=== PATIENT | female | born 1995 | race Caucasian/White ===

== ENCOUNTER 2017-11-14 04:55 | Emergency (ER) | payer MEDICAID ==
[~2017-11-14] VITALS: Ht 154.9 cm; Wt 56.7 kg
[~2017-11-14 04:55] MED LIST: MORPHINE 4 MG/ML INJ. SYRINGE IVP ONE
[2017-11-14 04:58] VITALS: BP_SYST 88
[2017-11-14] MEDS ORDERED: NACL 0.9% 1,000 ML IV ONE (05:23)
[2017-11-14] MEDS ORDERED: PANTOPRAZOLE SODIUM 40 MG/VIAL (PROTONIX) IVP ONE (05:30)
[2017-11-14 06:11] LABS: BASOPHILS # (AUTO) 0.4 K/uL (0.0-0.2); BASOPHILS % (AUTO) 2.8 % (0.0-2.0); EOSINOPHILS # (AUTO) 0.2 K/uL (0.0-0.4); EOSINOPHILS % (AUTO) 1.1 % (0.0-4.0); HEMATOCRIT 37.3 % (36-48); LYMPHOCYTES % (AUTO) 6.5 % (20.5-51.5); MEAN CORPUSCULAR HEMOGLOBIN 28 pg (27-31); MEAN CORPUSCULAR HGB CONC 32 % (32-36); MEAN CORPUSCULAR VOLUME 86 fL (79.0-98.0); MONOCYTES # (AUTO) 0.3 K/uL (0.0-1.0); MONOCYTES % (AUTO) 1.9 % (1.7-9.3); NEUTROPHILS % (AUTO) 87.7 % (40.0-70.0); RED BLOOD CELL COUNT(AUTO) 4.34 MIL/uL (4.2-6.2); RED CELL DISTRIBUTION WIDTH 15.1 % (9.0-15.0); WHITE BLOOD COUNT (AUTO) 15.9 K/uL (4.8-10.8)
[2017-11-14] MEDS ORDERED: MORPHINE 4 MG/ML INJ. SYRINGE ONE (06:21)
[2017-11-14 06:36] LABS: CALCIUM 9.4 mg/dL (8.4-11.0); CREATININE 0.58 mg/dL (0.55-1.30); POTASSIUM 3.5 mmol/L (3.5-5.1)
[2017-11-14 06:40] LABS: ALBUMIN 3.9 g/dL (3.4-4.8); TOTAL BILIRUBIN 0.4 mg/dL (0.0-1.0)
[2017-11-14 06:41] LABS: PLATELET COUNT (AUTO) 243 K/uL (130-430)
[2017-11-14 06:47] LABS: BILIRUBIN,URINE NEGATIVE (NEGATIVE); BLOOD, URINE NEGATIVE (NEGATIVE); CLARITY/URINE CLEAR (CLEAR); COLOR,URINE YELLOW (YELLOW); GLUCOSE,URINE NEGATIVE (NEGATIVE); KETONES,URINE TRACE (NEGATIVE); LEUKOCYTE ESTERASE ,URINE TRACE (NEGATIVE); NITRITE, URINE NEGATIVE (NEGATIVE); PH,URINE 5.5 (5.0-8.0); PROTEIN URINE TRACE (NEGATIVE); UROBILINOGEN,URINE 0.2 (0.2-1.0)
[2017-11-14 07:21] LABS: BACTERIA,URINE FEW /HPF (None Seen); MUCUS,URINE 1+ /LPF (None Seen); RBC,URINE 0-3 /HPF (0-3)
[2017-11-14] MEDS ORDERED: cefTRIAXone 1 GM IVPB PREMIX 50 ML IV ONE (07:30)
[2017-11-14 08:08] VITALS: BP_SYST 122
== END 2017-11-14 08:08 | disposition home or self-care (01) ==
LOC: SED 04:55
DX: N39.0 Urinary tract infection, site not specified (principal); K59.00 Constipation, unspecified
CPT/HCPCS: 36415; 74176; 80053; 81000; 83690; 85025; 87086; 96361; 96365; 96375; 99285; C9113; J0696; J2270; J7030

== ENCOUNTER 2018-05-03 15:45 | Emergency (ER) | payer SELFPAY ==
[~2018-05-03] VITALS: Ht 157.5 cm; Wt 48.5 kg
[2018-05-03 15:58] VITALS: BP_SYST 118
--- NOTE | 2018-05-03 16:06 | NUR ---
Patient to ER bed 7 to gown for evaluation. Side rails up. Report given to IAN Christianson.
--- NOTE | 2018-05-03 16:10 | NUR ---
Pt AAOx4 ambulated into ED c/o pain to L cheek and forehead with scabbing to sites x 2 days. Pt states she may have been bitten by a brown recluse spider x 3 days ago. No bleeding/discharge to site. Pt also reports sore throat and coughing. No other injuries/complaints per pt/noted. Will continue to monitor.
--- NOTE | 2018-05-03 16:41 | NUR ---
Pt ambulated with steady gait and non slip shoes to bathroom to provide urine sample.
[2018-05-03] MEDS: DEXAMETHASONE SOD PHOSPHATE 10 MG/ML VIAL IM ONE (16:49)
[2018-05-03] MEDS: KETOROLAC TROMETHAMINE 60 MG/2 ML VIAL IM ONE (16:49)
--- NOTE | 2018-05-03 16:49 | NUR ---
Medication administered. Pt tolerated well. No adverse reactions noted.
[2018-05-03] MEDS: PENICILLIN G BENZATHINE 1.2 MMU/2 ML SYR IM ONE (18:23)
--- NOTE | 2018-05-03 18:33 | NUR ---
Patient given written and verbal discharge instructions and verbalizes understanding. ER REIMBURSEMENT LIAISON Maylin discussed with patient the results and treatment provided. Patient in stable condition. ID arm band removed. Rx of Mupirocin, Prednisone, Clindamycin, Motrin given. Patient educated on pain management and to follow up with PMD. Pain Scale 0. Opportunity for questions provided and answered. Medication side effect fact sheet provided.
[2018-05-03 18:34] VITALS: BP_SYST 109
== END 2018-05-03 18:34 | disposition home or self-care (01) ==
LOC: SED 15:45
DX: J02.9 Acute pharyngitis, unspecified (principal); L98.8 Other specified disorders of the skin and subcutaneous tissue; F15.90 Other stimulant use, unspecified, uncomplicated
CPT/HCPCS: 36415; 81025; 86403; 87070; 87081; 87186; 96372; 99283; J0561; J1100; J1885

== ENCOUNTER 2018-05-20 13:37 | Emergency (ER) | payer SELFPAY ==
[~2018-05-20] VITALS: Ht 154.9 cm; Wt 47.6 kg
[2018-05-20 13:57] VITALS: BP_SYST 130
--- NOTE | 2018-05-20 14:08 | NUR ---
Patient to ER bed 05 for evaluation. Side rails up. Report given to Nancy SOSA.
--- NOTE | 2018-05-20 14:35 | NUR ---
Patient presented to ER with swelling to right cheek, pain 9/10. Patient arrive to ER ambulatory by self. Patient A&Ox4, temp 100.5, respirations equal bilat, skin pink, severe swelling to right side of face (cheek area), denies N/V/D. Josse states at 9 am this morning swelling started and becaome severe swelling prompting visit to ER.
--- NOTE | 2018-05-20 14:55 | NUR ---
Patient placed on equipment monitor phototypesetting.
--- NOTE | 2018-05-20 16:20 | NUR ---
MOI Greenwood at bedside examining patient.
[2018-05-20 16:25] LABS: HEMATOCRIT 38.1 % (36-48); HEMOGLOBIN 12.4 g/dL (12.0-16.0); MEAN CORPUSCULAR HEMOGLOBIN 28 pg (27-31); MEAN CORPUSCULAR HGB CONC 33 % (32-36); MEAN CORPUSCULAR VOLUME 85 fL (79.0-98.0); PLATELET COUNT (AUTO) 286 K/uL (130-430); RED BLOOD CELL COUNT(AUTO) 4.49 MIL/uL (4.2-6.2); RED CELL DISTRIBUTION WIDTH 16.7 % (9.0-15.0)
[2018-05-20 16:29] LABS: WHITE BLOOD COUNT (AUTO) 26.9 K/uL (4.8-10.8)
[2018-05-20 16:30] LABS: CALCIUM 9.8 mg/dL (8.4-11.0); CREATININE 0.6 mg/dL (0.55-1.30); POTASSIUM 3.7 mmol/L (3.5-5.1)
[2018-05-20 16:32] LABS: PROTHROMBIN TIME 10.3 SECS (9.5-12.5)
[2018-05-20 16:36] LABS: ALBUMIN 3.9 g/dL (3.4-4.8); TOTAL BILIRUBIN 1.3 mg/dL (0.0-1.0)
[2018-05-20 16:44] LABS: BAND % (MANUAL) 3 % (0-6); BASOPHILS % (MANUAL) 0 % (0-2); EOSINOPHILS % (MANUAL) 0 % (0-7); LYMPHOCYTES % (MANUAL) 8 % (20-46); MONOCYTES % (MANUAL) 6 % (0-11)
[2018-05-20] MEDS: HYDROcodone/ACETAMIN 5-325 MG TAB (NORCO/ VICODIN) PO ONE (16:47)
[2018-05-20] MEDS: KETOROLAC TROMETHAMINE 30 MG VIAL IVP ONE (16:48)
--- NOTE | 2018-05-20 18:30 | NUR ---
ER Dr. Greenwood at bedside discussing Discharge patient.
[2018-05-20 18:40] VITALS: BP_SYST 105
--- NOTE | 2018-05-20 18:40 | NUR ---
Patient given written and verbal discharge instructions and verbalizes understanding. ER MD discussed with patient the results and treatment provided. Patient in stable condition. ID arm band removed. IV catheter removed intact and dressing applied, no active bleeding. Rx of Larned & Keflex given. Patient educated on pain management and to follow up with PMD. Pain Scale 3/10 tolerable for patient. Opportunity for questions provided and answered. Medication side effect fact sheet provided.
--- NOTE | 2018-05-20 18:40 | NUR ---
Patient given written and verbal discharge instructions and verbalizes understanding. ER MD discussed with patient the results and treatment provided. Patient in stable condition. ID arm band removed. IV catheter removed intact and dressing applied, no active bleeding. Rx of Bicknell & Keflex given. Patient educated on pain management and to follow up with PMD. Pain Scale 3/10. Opportunity for questions provided and answered. Medication side effect fact sheet provided.
== END 2018-05-20 18:40 | disposition home or self-care (01) ==
LOC: SED 13:37
DX: K11.20 Sialoadenitis, unspecified (principal)
CPT/HCPCS: 36415; 70486; 80053; 81025; 83605; 85007; 85027; 85610; 87040; 96374; 99284; J1885

== ENCOUNTER 2018-11-22 09:17 | Emergency (ER) | payer MEDICAID ==
[~2018-11-22] VITALS: Ht 154.9 cm; Wt 49.4 kg
[2018-11-22 09:24] VITALS: BP_SYST 104
[2018-11-22 09:51] VITALS: BP_SYST 104
== END 2018-11-22 09:54 | disposition home or self-care (01) ==
LOC: SED 09:17
DX: H60.91 Unspecified otitis externa, right ear (principal)
CPT/HCPCS: 99283

== ENCOUNTER 2019-01-22 14:31 | Emergency (ER) | payer MEDICAID ==
[~2019-01-22] VITALS: Ht 154.9 cm; Wt 54.9 kg
[2019-01-22 14:43] VITALS: BP_SYST 126
--- NOTE | 2019-01-22 15:45 | NUR ---
Patient to ER bed 7 to gown for evaluation. Side rails up. Assumed care.
--- NOTE | 2019-01-22 15:50 | NUR ---
MOI Fernandez at bedside examining patient.
--- NOTE | 2019-01-22 15:54 | NUR ---
Patient arrived via POV, AAOx4, and ambulatory with steady gait. Patient c/c of upper lip swelling. Swelling to left upper lip. Pulled skin last night, skin was bumpy and hanging down. So she pulled it off. Causing swelling, redness, and inflammation. No draining. No fever or chills present. No difficulty swallowing or breathing. Will continue to follow up and monitor.
[2019-01-22 15:58] VITALS: BP_SYST 126
--- NOTE | 2019-01-22 15:58 | NUR ---
Patient given written and verbal discharge instructions and verbalizes understanding. ER MD discussed with patient the results and treatment provided. Patient in stable condition. ID arm band removed. Rx of Prednisone and Benadryl given. Patient educated on pain management and to follow up with PMD. Pain Scale 0/10. Opportunity for questions provided and answered. Medication side effect fact sheet provided.
[2019-01-22] MEDS ORDERED: PREDNISONE 20 MG TABLET PO ONE (16:00)
[2019-01-22] MEDS ORDERED: DIPHENHYDRAMINE HCL 25 MG CAPSULE PO ONE (16:00)
== END 2019-01-22 15:58 | disposition home or self-care (01) ==
LOC: SED 14:31
DX: T78.40XA Allergy, unspecified, initial encounter (principal); R22.0 Localized swelling, mass and lump, head; X58.XXXA Exposure to other specified factors, initial encounter
CPT/HCPCS: 99283; J7512; Q0163